=== PATIENT | male | born 1965 | race Caucasian/White ===

== ENCOUNTER 2018-01-11 14:19 | Emergency (ER) | payer OTHER | END 2018-01-11 15:08 | disposition home or self-care (01) | LOC: ER 14:19 | DX: S49.92XA Unspecified injury of left shoulder and upper arm, initial encounter (principal); X50.9XXA Other and unspecified overexertion or strenuous movements or postures, initial encounter; Y93.89 Activity, other specified; Y99.8 Other external cause status; Y92.89 Other specified places as the place of occurrence of the external cause | CPT/HCPCS: 99281 ==

== ENCOUNTER → 2018-08-01 | Outpatient (CLI) | payer OTHER ==
[2018-01-11 14:40] VITALS: BP 161/96
--- NOTE | 2018-08-01 16:45 | KCIC ---
EXAM: Abdomen sonogram. HISTORY: Abnormal liver function laboratory values. TECHNIQUE: Sonographic imaging of the abdomen was performed. COMPARISON: None. FINDINGS: The liver is normal in size. There is hepatic steatosis. There is focal fatty sparing along the gallbladder fossa. No focal hepatic lesion is seen. The gallbladder is unremarkable. The common bile duct is normal in caliber. The right kidney is unremarkable. The pancreas is unremarkable. The inferior vena cava is patent. The aorta is not assessed. IMPRESSION: 1. Hepatic steatosis. 2. Otherwise, unremarkable abdomen sonogram. Electronically signed by: Louise Govea MD (08/01/2018 4:41 PM) [id number]
== END | disposition home or self-care (01) ==
LOC: KCIC US 15:13
PROVIDERS: ATTEND Family Medicine
DX: K76.0 Fatty (change of) liver, not elsewhere classified (principal)
CPT/HCPCS: 76705

== ENCOUNTER → 2019-07-11 | Outpatient (CLI) | payer OTHER ==
[2018-01-11 14:40] VITALS: BP 161/96
--- NOTE | 2019-07-11 12:59 | KCIC ---
EXAM: Abdomen sonogram. HISTORY: Elevated liver function laboratory values. TECHNIQUE: A sonographic imaging of the abdomen was performed. COMPARISON: 08/01/2018. FINDINGS: The liver is normal in size. There is hepatic steatosis. No focal hepatic lesion is seen. The gallbladder is unremarkable. The common bile duct is normal in caliber. The right kidney is unremarkable. The pancreas and inferior vena cava are partially obscured due to bowel gas. IMPRESSION: 1. Hepatic steatosis. 2. Partially obscured pancreas and inferior vena cava due to bowel gas. Electronically signed by: Louise Govea MD (07/11/2019 12:56 PM) [facility]
== END | disposition home or self-care (01) ==
LOC: KCIC US 09:38
PROVIDERS: ATTEND Family Medicine
DX: K76.0 Fatty (change of) liver, not elsewhere classified (principal)
CPT/HCPCS: 76705